=== PATIENT | male | born 1970 | race Caucasian/White ===

== ENCOUNTER 2018-11-15 12:47 | Observation (INO) ==
[2018-11-15] MEDS ORDERED: XYLOCAINE 2% JELLY TOP ONE (14:26)
[2018-11-15] MEDS ORDERED: XYLOCAINE-MPF 2% INJ ONE (14:26)
--- NOTE | 2018-11-15 14:35 | PROVIDER DOCUMENTATION ---
HPI-Rash/Wound/ReCheck - General Chief Complaint: Abscess Stated Complaint: ABSCESS Time Seen by Provider: 11/15/18 14:02 Source: patient Allergies/Adverse Reactions: Allergies Allergy/AdvReac Type Severity Reaction Status Date / Time ciprofloxacin [From Cipro] Allergy NAUSEA/VOMI Verified 11/15/18 14:17 TING ciprofloxacin HCl * Allergy NAUSEA/VOMI Verified 11/15/18 14:17 [From Cipro] TING Home Medications: Home Medication List Medication Instructions Recorded Confirmed Last Taken Type Ibuprofen 1 dose PO Q4H PRN PRN 11/15/18 11/15/18 11/15/18 08:00 History - History of Present Illness-Dermatology Nature of Presenting Problem: 48 YO M pmh for CHF/HTN presents with c/o a large knot under his arm that has be en increasing in size for the past 4 days. it is painful. pt states he has had some lesions like this before but has never had to have one drained. He denies fever or drainage. He states he has hx of HTN and CHF for which he stopped taking medicine for on his own because he lost weight and started feeling better. Quality: reports: burning, painful Severity: reports: moderate Onset/Duration: reports: 4 days ago Timing: reports: still present, getting worse Context/Associated Symptoms: reports: abscess Identifiable cause?: No Exposure: reports: unknown cause Similar Symptoms Previously?: Yes Recently seen or treated by another doctor?: No Review of Systems - Adult - REVIEW OF SYSTEMS - ADULT Constitutional: denies: chills, fever Eyes: reports: no symptoms reported Ears, Nose, Mouth & Throat: reports: no symptoms reported Cardiovascular: reports: no symptoms reported Respiratory: denies: shortness of breath, wheezing Gastrointestinal: reports: no symptoms reported Genitourinary: reports: no symptoms reported Musculoskeletal: reports: no symptoms reported Integumentary: reports: see HPI Neurological: reports: no symptoms reported Past History - Adult - PAST MEDICAL HISTORY-ADULT Review of Records: reports: Old Records Reviewed Major Childhood Illnesses: reports: denies history Cardiovascular: reports: HTN Respiratory: reports: COPD Gastrointestinal: reports: GERD Obstetrical/Gynecological: reports: denies history Genitourinary: reports: denies history Musculoskeletal: reports: arthritis (gout) Neurological: reports: denies history Endocrine/Immune: reports: denies history Other Conditions: reports: denies history - PRIOR SURGERIES/PROCEDURES Surgical/Procedure History: reports: hernia repair - FAMILY HISTORY Family History: reviewed, not pertinent - SOCIAL HISTORY Smoking: cigarettes Substance Use: alcohol Alcohol Use Frequency: once a week Number of drinks per typical drinking period:: 2 drinks Living Situation: family Physical Exam-General - PHYSICAL EXAM-ADULT Initial Vital Signs Reviewed: Yes - CONSTITUTIONAL General Appearance: appears well, alert, no apparent distress - EYES Eyes: pink conjunctivae - NECK Neck: full range of motion, supple - RESPIRATORY Respiratory: normal breath sounds - GASTROINTESTINAL (ABDOMEN) Abdominal Exam: non tender, soft - MUSCULOSKELETAL Extremity: normal range of motion, normal gait Peripheral Pulses: radial (R): 2+, radial (L): 2+ - SKIN Integumentary: other (abscess to right axilla, no drainage. center point for coming to a head. redness and induration present, but no streaking or other lymphadenopathy.) - NEUROLOGIC Neurologic: grossly normal Progress - PLAN OF CARE/RESULTS Progress/Plan/Lab Results: Vital Signs - 8 hr 11/15/18 12:50 11/15/18 14:27 11/15/18 14:28 Temperature 99.2 F Pulse Rate 104 H Respiratory Rate 16 Blood Pressure 179/86 176/88 O2 Sat by Pulse Oximetry 98 94 L 95 11/15/18 14:30 11/15/18 14:45 11/15/18 15:00 Temperature Pulse Rate Respiratory Rate Blood Pressure O2 Sat by Pulse Oximetry 97 97 98 11/15/18 15:02 11/15/18 15:15 11/15/18 15:43 Temperature Pulse Rate Respiratory Rate Blood Pressure 161/76 O2 Sat by Pulse Oximetry 97 98 99 11/15/18 15:45 11/15/18 16:00 11/15/18 16:25 Temperature Pulse Rate Respiratory Rate Blood Pressure O2 Sat by Pulse Oximetry 100 99 100 11/15/18 16:26 11/15/18 16:30 Temperature Pulse Rate Respiratory Rate Blood Pressure 176/78 O2 Sat by Pulse Oximetry 100 99 Laboratory Results - last 24 hr 11/15/18 11/15/18 11/15/18 16:25 16:25 16:25 WBC 14.20 H RBC 4.57 L Hgb 13.6 L Hct 40.4 L MCV 88.4 MCH 29.8 MCHC 33.7 RDW Std Deviation 13.6 Plt Count 233 MPV 10.5 H Immature Gran % (Auto) 0.6 H Neut % (Auto) 81.3 H Lymph % (Auto) 8.7 L [place] % (Auto) 8.3 Eos % (Auto) 0.7 Baso % (Auto) 0.4 Immature Gran # (Auto) 0.09 H Neut # (Auto) 11.54 H Lymph # (Auto) 1.24 [place] # (Auto) 1.18 H Eos # (Auto) 0.10 Baso # (Auto) 0.05 PT 14.1 INR 1.08 PTT (Actin FS) 28.7 Sodium 135 L Potassium 4.1 Chloride 98 Carbon Dioxide 27 Anion Gap 10 BUN 7 L Creatinine 0.6 L Estimated GFR/1.73 m2 > 60 BUN/Creatinine Ratio 12 Glucose 93 Calculated Osmolality 268 Calcium 9.0 Total Bilirubin 0.51 AST 19 ALT 23 Alkaline Phosphatase 95 Total Protein 7.0 Albumin 4.1 Globulin 2.9 Albumin/Globulin Ratio 1.4 Orders Category Date Time Status Cardiac Monitoring DIRECTED Care 11/15/18 14:[address] THORAX W/CONTRAST [CT] Stat Exams 11/15/18 15:42 Completed CBC WITH ELECTRONIC DIFF [HEME] Stat Lab 11/15/18 16:25 Completed COMPREHENSIVE METABOLIC PANEL [CHEM] Stat Lab 11/15/18 16:25 Completed PROTIME WITH INR [COAG] Stat Lab 11/15/18 16:25 Completed PTT [COAG] Stat Lab 11/15/18 16:25 Completed Hydrocodone/APAP 7.5 mg/325 mg [[place]-7.5] Med 11/15/18 15:48 Discontinued 1 each PO NOW ONE Ibuprofen [Motrin] Med 11/15/18 15:03 Discontinued 600 mg PO NOW ONE Lidocaine 2% Jelly [Xylocaine 2% Jelly] Med 11/15/18 14:26 Discontinued See Dose Instructions TOP NOW ONE Lidocaine 2% Pf [Xylocaine-Mpf 2%] Med 11/15/18 14:26 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 No fluid pocket seen. will get CT and then consult surgery.) Reassessment #2 Time Reassessed: 18:50 Status: improving (pt stable. informed him of hospital admission. will start abx) - CONSULTS/PCP/HOSPITALIST Notification #1 *Consult/PCP/Hospitalist*: Dr. Farias- surgery Time Discussed: 18:51 Reason/Comments: states to admit to hospital service, will see in am Consult Disposition: Admit #2 Consult: Dr. Mitchell Time Discussed: 19:13 Consult Disposition: Will see in ED, Admit Departure - Departure Date of Disposition Decision: 11/15/18 Time of Disposition Decision: 18:52 DIAGNOSIS: Abscess Disposition: ADMITTED INPATIENT 09 Certified Medical Emergency: Emergent Condition: Stable Referrals and Follow-Ups: None,PCP [Primary Care Provider] - - Critical Care Note This patient required my direct & personal management of CC.: No Attestation - Physician/ LOGAN Attestation The physician spent face to face time with patient:: Yes Advanced Practice Provider documentation review:: Supervising physician onsite a nd consulted in the evaluation and care of this patient. The physician did have a face to face encounter with the patient.
[2018-11-15] MEDS ORDERED: MOTRIN PO ONE (15:03)
[2018-11-15] MEDS ORDERED: NORCO-7.5 PO ONE (15:48)
[2018-11-15 17:16] LABS: BASO# 0.05 X1000 (0.0-0.2); BASO% 0.4 % (0.0-0.8); EOS% 0.7 % (0.0-10.0); HEMATOCRIT 40.4 % (42.0-52.0); HEMOGLOBIN 13.6 g/dL (14.0-18.0); IMM GRAN# 0.09 X1000 (0.0-0.04); IMM GRAN% 0.6 % (0.0-0.5); LYMPH# 1.24 X1000 (1.2-3.4); LYMPH% 8.7 % (20.5-51.1); MCH 29.8 PG (27-31); MCHC 33.7 g/dL (33-37); MCV 88.4 FL (81-99); MONO# 1.18 X1000 (0.11-0.59); MONO% 8.3 % (1.7-9.3); MPV 10.5 FL (7.4-10.4); NEUT# 11.54 X1000 (1.4-6.5); NEUT% 81.3 % (42.2-75.2); PLT 233 X1000 (130-400); RBC 4.57 XMIL (4.7-6.1); RDW 13.6 % (11.5-14.5)
[2018-11-15 17:19] LABS: INR 1.08; PROTIME 14.1 Seconds (11.0-16.0)
[2018-11-15 17:20] LABS: PTT 28.7 Seconds (22.3-41.8)
[2018-11-15 17:31] LABS: AGAP 10; ALB/GLOB RATIO 1.4; ALBUMIN 4.1 g/dL (3.5-5.0); ALKALINE PHOSPHATASE 95 U/L (32-122); BUN 7 mg/dL (8-22); CHLORIDE 98 mmol/L (98-107); COSMO 268; CREATININE 0.6 mg/dL (0.7-1.2); ESTIMATED GFR > 60; GLUCOSE 93 mg/dL (70-104); GOT 19 U/L (10-34); GPT 23 U/L (10-44); POTASSIUM 4.1 mmol/L (3.5-5.1); SODIUM 135 mmol/L (136-145); TCO2 27 mmol/L (25-35); TOTAL BILIRUBIN 0.51 mg/dL (0.20-1.00)
--- NOTE | 2018-11-15 18:39 | Diag Imaging Result Doc PS360 ---
EXAM: CT THORAX W/CONTRAST INDICATION: swelling in right axilla TECHNIQUE: This exam was performed using automated exposure control, adjustment of mA or kV according to patient size, and/or use of iterative reconstruction technique. COMPARISON: None. FINDINGS: There is trace subsegmental atelectasis at the right lung base. The lungs are grossly clear, otherwise. There is no pleural fluid collection and no pneumothorax. There is no evidence of significant mediastinal or hilar lymphadenopathy. There is extensive soft tissue edema is noted extending from the right axillary region inferiorly along the right chest wall suggesting cellulitis. There is a masslike lesion in the right axillary region measuring 6.2 x 3.8 cm axially. This may actually represent an abscess but unfortunately it is significantly obscured by beam hardening artifact related to the dense humeral heads as well as the contrast bolus. Ultrasound may be helpful to better evaluate if needed. Limited views of the upper abdomen are grossly unremarkable. There are bulky ventral marginal osteophytes throughout the lower cervical and thoracic spine. IMPRESSION: Prominent soft tissue edema associated with the right axillary region and an ovoid masslike lesion that is significantly obscured by beam hardening artifact but may actually represent an abscess. Please see above discussion. Electronically signed by Nav Bush 11/15/2018 6:37 PM
[2018-11-15] MEDS ORDERED: VANCOMYCIN 1 GM/NS 1 GM/250 ML IVPB IV ONE ×2 (18:49→23:30)
[2018-11-15] MEDS ORDERED: NICODERM PATCH TD ONE (19:17)
[2018-11-15] MEDS ORDERED: NS 1,000 ML IV ONE (20:28)
--- NOTE | 2018-11-15 21:15 | HISTORY AND PHYSICAL ---
PRIMARY CARE PHYSICIAN: None. CHIEF COMPLAINT: Right axillary pain. HISTORY OF PRESENTING ILLNESS: A 48-year-old male without any significant past medical history, presented to emergency department with complaint of right axillary pain and edema for the past four days. The patient states it was worsening and he was not feeling well, and subsequently had come to the emergency department. In the ED, he was evaluated, had a CT of the chest done which did show an abscess on the right axilla. Case was discussed with General Surgery, who recommended admission for further management. At the time of my examination, patient denied any headache, fever, chills, chest pain, shortness of breath, or any weight changes, but complained of right axillary pain. PAST MEDICAL HISTORY: None. PAST SURGICAL HISTORY: Hernia repair. ALLERGIES: No known drug allergies. CURRENT MEDICATIONS: None. SOCIAL HISTORY: A 83-gpvi-acut history of smoking. Denies any history of alcohol or illicit drug use. FAMILY HISTORY: Positive for coronary artery disease in father. REVIEW OF SYSTEMS: A 14-point review of systems is as in HPI. Other systems negative. PHYSICAL EXAMINATION: GENERAL: Cooperative, friendly male. He is resting comfortably now. VITAL SIGNS: Temperature 99.2 degrees, pulse 104, respirations 16, blood pressure 179/86. HEENT: Atraumatic, normocephalic. Extraocular movements intact. PERRLA. NECK: No masses. CHEST: Clear to auscultation. Right axilla, there is an indurated area and seems tender. CARDIOVASCULAR: Regular rate and rhythm. ABDOMEN: Soft. Positive bowel sounds. EXTREMITIES: No edema. NEUROLOGIC: He is awake, alert, oriented x3. GENITOURINARY: No bladder distention. SKIN: Warm. LABORATORIES AND STUDIES: WBC is 14.20, hemoglobin 13.6, hematocrit 40.4, platelets 233,000. Sodium 135, potassium 4.1, chloride 98, CO2 is 27, BUN is 7, creatinine 2.6, glucose 93. CT of the chest shows prominent soft tissue edema within the right axilla region which may represent an abscess. ASSESSMENT: This is a 48-year-old male without any significant past medical history, presented to emergency department with four days history of having pain in his right axillary region. There is a moderate amount of edema and tenderness. He was evaluated in the emergency department. He had imaging done, which did show an abscess. His case was discussed with General Surgery, who recommended admission for further management. ASSESSMENT: 1. Right axillary abscess. 2. Ongoing tobacco abuse. PLAN: 1. We will admit patient to medical floor with telemetry. 2. We will start patient on empiric antibiotics. 3. General Surgery is consulted for I D in the morning. 4. I counseled patient on smoking cessation. 5. Put patient on DVT prophylaxis with SCD. 6. We will continue to follow, reassess, make further recommendation based on patient's clinical course. cc: Sadi Mitchell MD
[2018-11-15] MEDS ORDERED: BENADRYL PO ONE (21:35)
[2018-11-15] MEDS ORDERED: VANCOMYCIN IV PER PHARMACY MISC SCH (22:43)
[2018-11-15] MEDS ORDERED: TYLENOL PO PRN (22:43)
[2018-11-15] MEDS ORDERED: ZOFRAN IV PRN (22:43)
[2018-11-15] MEDS: ZOSYN 3.375 GM in NS 50 ML IV SCH (23:21)
[2018-11-15] MEDS: NORCO-7.5 PO PRN (23:22)
[2018-11-16] MEDS: ZOSYN 3.375 GM in NS 50 ML IV SCH ×3 (05:18→16:23)
[2018-11-16 06:15] LABS: BASO# 0.05 X1000 (0.0-0.2); BASO% 0.4 % (0.0-0.8); HEMATOCRIT 38.3 % (42.0-52.0); HEMOGLOBIN 12.7 g/dL (14.0-18.0); IMM GRAN# 0.09 X1000 (0.0-0.04); IMM GRAN% 0.7 % (0.0-0.5); LYMPH# 0.98 X1000 (1.2-3.4); LYMPH% 7.8 % (20.5-51.1); MCH 29.8 PG (27-31); MCHC 33.2 g/dL (33-37); MCV 89.9 FL (81-99); MONO# 1.08 X1000 (0.11-0.59); MONO% 8.6 % (1.7-9.3); MPV 10.5 FL (7.4-10.4); NEUT# 10.33 X1000 (1.4-6.5); NEUT% 82.5 % (42.2-75.2); PLT 239 X1000 (130-400); RBC 4.26 XMIL (4.7-6.1); RDW 13.8 % (11.5-14.5); WBC 12.53 X1000 (4.8-10.8)
[2018-11-16 06:41] LABS: AGAP 11; BUN 10 mg/dL (8-22); CALCIUM 8.8 mg/dL (8.8-10.2); CHLORIDE 103 mmol/L (98-107); COSMO 281; CREATININE 0.7 mg/dL (0.7-1.2); ESTIMATED GFR > 60; GLUCOSE 118 mg/dL (70-104); POTASSIUM 4.3 mmol/L (3.5-5.1); SODIUM 141 mmol/L (136-145); TCO2 27 mmol/L (25-35)
[2018-11-16] MEDS: VANCOMYCIN 2,000 MG in NS 500 ML IV SCH ×2 (08:12→19:52)
--- NOTE | 2018-11-16 08:39 | CONSULTATION ---
DATE OF CONSULTATION: 11/16/2018 Mr. Santi Zepeda is a 48-year-old, white male who presented to our emergency department with swelling and pain and redness and drainage involving his right axilla. Clinically it was felt that he had a soft tissue infection of the right axilla and he was admitted and we were asked to evaluate him by our hospitalists. PAST MEDICAL HISTORY: None. PAST SURGICAL HISTORY: Is hernia repair. ALLERGIES: No known drug allergies. MEDICATIONS: None. SOCIAL HISTORY: He is a smoker. FAMILY HISTORY: Positive for coronary artery disease. REVIEW OF SYSTEMS: A 14 point review of systems was performed and was essentially negative except for the history of present illness. PHYSICAL EXAMINATION: General: On exam, Mr. Zepeda is overweight, in no acute distress. HEENT exam: No jaundice. No oral lesions. Satisfactory dentition. Neck: No cervical or supraclavicular lymphadenopathy. Heart: Has a regular rate. Lungs: Were clear to auscultation and percussion bilaterally. Abdomen: Soft, nontender, without palpable mass. No costovertebral tenderness. Rectal: Exam was not performed. Extremities: He does have palpable peripheral pulses. No peripheral edema. Neurologically: No focal deficit. He had swelling and redness and drainage involving his right axilla consistent with a soft tissue abscess. CT scan was performed of his chest which also suggests abscess right axilla. PLAN: We will perform incision and drainage with debridement in the operating room this morning. I have discussed it with the patient. He wants to proceed. cc: Indigo Farias MD
[2018-11-16] MEDS ORDERED: DIPRIVAN 1% ONE (10:54)
[2018-11-16] MEDS ORDERED: FENTANYL ONE (10:55)
[2018-11-16] MEDS ORDERED: XYLOCAINE-MPF 2% ONE (10:55)
--- NOTE | 2018-11-16 11:05 | PROGRESS NOTE ---
DATE: 11/16/2018 Mr. Zepeda was admitted yesterday with right axilla pain, came into the emergency room. Really no other significant past medical history. He had an abscess in the right axilla. General Surgery consulted. Plan is to do I and D and drainage today in the OR. OBJECTIVE: Vital signs: Temp 98.7 degrees, pulse 84, respirations 16, blood pressure 155/73. HEENT: Pupils are equal and round. Lungs: Lungs are clear in all lung escobar. Cardiovascular: Regular rhythm and rate without murmur or S3. Abdomen: Abdomen is soft. Skin: Skin is warm and dry. DIAGNOSTIC DATA: Her CT of her chest showed prominent soft tissue edema associated with right axillary region. Ovoid masslike lesion that is significantly obscured but appears to be an abscess. ASSESSMENT AND PLAN: It appears Dr. Farias has evaluated and is going to perform incision and drainage and debridement. cc: Lion Jenkins MD
[2018-11-16] MEDS: DILAUDID ONE ×2 (11:53→12:03)
--- NOTE | 2018-11-16 13:01 | OPERATIVE NOTE ---
PROCEDURE DATE: 11/16/2018 PREOPERATIVE DIAGNOSIS: Deep right axillary soft tissue infection. POSTOPERATIVE DIAGNOSIS: Deep right axillary soft tissue infection. PRINCIPAL PROCEDURE: Incision and drainage of deep right axillary soft tissue infection. SURGEON: Indigo Farias MD. ANESTHESIA: General. ESTIMATED BLOOD LOSS: 50 mL. DRAINS: None. INDICATIONS: Mr. Santi Zepeda is a 48-year-old overweight white male who was admitted during the night yesterday with an axillary abscess. He was admitted to our Hospitalists, received IV antibiotics, and incision and drainage in surgery of this soft tissue abscess was recommended. FINDINGS: He had thick purulence involving the deep tissues of his right axilla. We felt we drained the abscess cavity thoroughly and then irrigated it out and packed it open. DESCRIPTION OF PROCEDURE: The patient was brought to the operating room, placed supine, received general anesthesia, and was ventilated using the LMA. His right axilla was prepped and draped within the sterile field. He was already on IV antibiotics. I used a 10 blade scalpel to make an incision through the skin and through the subcutaneous tissue down to the deep tissue of the axilla to drain the purulence. Cultures were taken. We made sure that the abscess cavity was unroofed completely. Bleeding was controlled using the cautery. I used irrigation and irrigated the abscess cavity and packed it open with inch iodoform gauze followed by dry dressings and Medipore tape. He tolerated the procedure well with plans for him to go the recovery room and then return to the floor. cc: Indigo Farias MD
[2018-11-16] MEDS: NORCO-7.5 PO PRN (19:56)
[2018-11-17] MEDS: ZOSYN 3.375 GM in NS 50 ML IV SCH ×2 (00:44→05:02)
[2018-11-17] MEDS: VANCOMYCIN 2,000 MG in NS 500 ML IV SCH (08:17)
--- NOTE | 2018-11-17 09:53 | DISCHARGE SUMMARY ---
ADMISSION DATE: 11/15/2018 DISCHARGE DATE: 11/17/2018 This is a 48-year-old male without any significant past medical history, who presented to the emergency department complaining of right axillary pain and edema for the past 4 days that had been worsening, not feeling well, and had come to the emergency department. In the emergency room, evaluated. CT of the chest was done. It did show an abscess in the axilla, and General Surgery was consulted. Dr. Farias performed incision and drainage of the right axilla and soft tissue infection, and it drained well, made sure that the abscess cavity was unroof completely, and felt the patient could go home. He will change the dressings twice a day. Note that cultures are pending. He is allergic to Cipro. I am going to put him on Augmentin, I think for another 7 days, just 875 mg p.o. twice a day, and will discharge him home. His medications that he took at home were just ibuprofen, so I will leave him some pain medicine, just some Essie 7.5 to take every 6 hours p.r.n. for a couple of days if he wants them. cc: Lion Jenkins MD
--- NOTE | 2018-11-17 09:56 | PROGRESS NOTE ---
DATE: 11/17/2018 SUBJECTIVE: Mr. Zepeda is now postop day 1 from incision and drainage of a right axillary abscess. He feels clinically better this morning. OBJECTIVE: I removed the packing from the wound and irrigated with hydrogen peroxide. It appears to be clean. The surrounding cellulitis is resolving quickly. I discussed wound care with him and we will plan to discharge him home under the care of his family with followup in my outpatient office. cc: Indigo Farias MD
[2018-11-17 11:36] VITALS: BP 169/88
--- NOTE | 2018-11-17 13:26 | PROGRESS NOTE ---
DATE: 11/17/2018 ADDENDUM: He was discharged on 11/17/2018. His cultures came back from his axillary drainage and they showed gram-positive cocci that appeared to be MRSA so instead of Augmentin, I am going to give him Bactrim Double Strength 1 twice a day for 7 days. I gave that prescription to him. cc: Lion Jenkins MD
== END 2018-11-17 13:27 | disposition home or self-care (01) ==
LOC: 4N 12:47 → ED 12:47 → SUATTDRO 21:46
PROVIDERS: ATTEND Emergency Medicine